=== PATIENT | male | born 1970 | race Caucasian/White ===

== ENCOUNTER 2018-07-12 11:03 | Inpatient (IN) | payer OTHER ==
[2018-07-12 11:42] VITALS: BMI 25.0
--- NOTE | 2018-07-12 13:34 | HP ---
CIWA Score - CIWA Score Nausea/Vomitin-Int. Nausea w/Dry Heave Muscle Tremors: 3 Anxiety: 4-Mod. Anxious/Guarded Agitation: 1-Slight > Activity Paroxysmal Sweats: No Perspiration Orientation: 0-Oriented Tacttile Disturbances: 0-None Auditory Disturbances: 0-None Visual Disturbances: 0-None Headache: 2-Mild CIWA-Ar Total Score: 14 Admission ROS BHS - HPI Allergies/Adverse Reactions: Allergies Allergy/AdvReac Type Severity Reaction Status Date / Time No Known Allergies Allergy Verified 07/12/18 12:32 History of Present Illness: patient here requesting detox from ETOH use , reports 12-pk beer/day , + tremors if not drinking , nausea and vomiting every morning , starts drinking as soon as he wakes up , denies seizures, + blackouts , + tremors m denies recent falls . previous detox x 3 , most recently 2 mo ago [facility] rere 0.302 utox + BZO pmhx : HIV + , htn , insomnia , copd , chronic left hip pain pshx : denies allergies : denies tobacco : occasional use denies driving after drinking Exam Limitations: Intoxication - Ebola screening Have you traveled outside of the country in the last 21 days: No Have you had contact with anyone from an Ebola affected area: No Have you been sick,other than usual withdrawal symptoms: No Do you have a fever: No - Review of Systems Constitutional: See HPI EENT: reports: Other (glasses for reading and distance) Respiratory: reports: Other (copd) Cardiac: reports: Irregular Heart Rate GI: reports: Diarrhea : reports: No Symptoms Reported Musculoskeletal: reports: Other (left 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 , saw ortho ,per pt replacement after age 50) Integumentary: reports: No Symptoms Reported Neuro: reports: Headache, Unsteady Gait Endocrine: reports: No Symptoms Reported Hematology: reports: No Symptoms Reported, See HPI, Anemia, Blood Clots, Easy Bleeding, Easy Bruising, Bleeding Diathesis, Lymph Node Abnormalities, Swollen Glands, Other Psychiatric: reports: Depressed, other (mdd , denies SI /HI) Patient History - Patient Medical History Hx Asthma: No Hx Chronic Obstructive Pulmonary Disease (COPD): Yes Hx Cardiac Disorders: No Hx Hypertension: Yes Hx Seizures: No Hx Diabetes: No Hx Gastrointestinal Disorders: No Hx Genitourinary Disorders: No Hx Sexually Transmitted Disorders: No Hx Renal Disease (ESRD): No Hx Depression: Yes Hx Suicide Attempt: No Hx Schizophrenia: No - Patient Surgical History Past Surgical History: No Hx Neurologic Surgery: No Hx Cataract Extraction: No Hx Cardiac Surgery: No Hx Lung Surgery: No Hx Breast Surgery: No Hx Breast Biopsy: No Hx Abdominal Surgery: No Hx Appendectomy: No Hx Cholecystectomy: No Hx Genitourinary Surgery: No Hx Section: No Hx Orthopedic Surgery: No Anesthesia Reaction: No - PPD History Previous Implant?: Yes Documented Results: Negative w/o proof - Smoking Cessation Smoking history: Current some day smoker Have you smoked in the past 12 months: Yes Aproximately how many cigarettes per day: 2 Hx Chewing Tobacco Use: No Initiated information on smoking cessation: No - Substances Abused Alcohol-beer Route: Oral Frequency: Daily Amount used: 2-6 pks. Age of first use: 17 Date of Last Use: 07/12/18 Admission Physical Exam [facility] - Vital Signs Vital Signs: Vital Signs - 24 hr 07/12/18 11:39 Temperature 97.1 F L Pulse Rate 89 Respiratory 20 Rate Blood Pressure 120/83 - Physical General Appearance: Yes: Moderate Distress, Intoxicated, Tremorous, Sweating, Anxious HEENTM: Yes: Within Normal Limits, EOMI, Hearing grossly Normal, Normal ENT Inspection, Normocephalic, Normal Voice, LEBRON, Pharynx Normal Respiratory: Yes: Within Normal Limits, Chest Non-Tender, Lungs Clear, Normal Breath Sounds, No Respiratory Distress, No Accessory Muscle Use Neck: Yes: Within Normal Limits, No masses,lesions,Nodules, Trachea in good position Cardiology: Yes: Within Normal Limits Abdominal: Yes: Within Normal Limits Genitourinary: Yes: Within Normal Limits Back: Yes: Within Normal Limits Musculoskeletal: Yes: Within Normal Limits Extremities: Yes: Tremors Neurological: Yes: Within Normal Limits, Motor Strength 5/5 Integumentary: Yes: Within Normal Limits, Normal Color, Dry, Warm Lymphatic: Yes: Within Normal Limits, Adenopathy, Tenderness, Other - Diagnostic (1) Alcohol withdrawal Current Visit: Yes Status: Acute Qualifiers: Complication of substance-induced condition: uncomplicated Qualified Code(s ): F10.230 - Alcohol dependence with withdrawal, uncomplicated Cleared for Admission [facility] - Detox or Rehab [facility] Level of Care: Medically Managed Detox Regimen/Protocol: Librium BHS Breath Alcohol Content Breath Alcohol Content: 0.302 Urine Drug Screen - Results Drug Screen Negative: No Urine Drug Screen Results: BZO-Benzodiazepines
[2018-07-12] MEDS ORDERED: hydrOXYzine PAMOATE 25 MG CAPSULE (FP) PO PRN (13:42)
[2018-07-12] MEDS ORDERED: LOPERAMIDE HCL 2 MG CAPSULE PO PRN (13:42)
[2018-07-12] MEDS ORDERED: chlordiazePOXIDE HCL 25 MG CAPSULE PO PRN (13:42)
[2018-07-12] MEDS ORDERED: MAG HYDROX/AL HYDROX/SIMETH 30 ML UNIT-DOSE CUP PO PRN (13:42)
[2018-07-12] MEDS ORDERED: P-EPHED 60MG/TRIPROLIDI 2.5MG TABLET PO PRN (13:42)
[2018-07-12] MEDS ORDERED: MENTHOL/PHENOL 1 EACH UD MM PRN (13:42)
[2018-07-12] MEDS ORDERED: IBUPROFEN 400 MG TABLET (FP) PO PRN (13:42)
[2018-07-12] MEDS ORDERED: MAGNESIUM CITRATE 300 ML BOTTLE PO PRN (13:42)
[2018-07-12] MEDS ORDERED: MAGNESIUM HYDROX 2400MG/30ML ORAL SUSPENSION 30 ML CUP PO PRN (13:42)
[2018-07-12] MEDS ORDERED: guaiFENesin/D-METHORPHAN HB 10 ML UNIT-DOSE CUPS PO PRN (13:42)
[2018-07-12] MEDS ORDERED: ACETAMINOPHEN 325 MG TABLET (FP) PO PRN (13:42)
[2018-07-12] MEDS ORDERED: DICLOFENAC SODIUM TP PRN (13:44)
[2018-07-12] MEDS: chlordiazePOXIDE HCL 25 MG CAPSULE PO SCH ×2 (17:12→22:31)
[2018-07-12 17:32] LABS: URINE APPEARANCE CLEAR; URINE BILIRUBIN NEGATIVE (<2.0 mg/dL); URINE COLOR LTYELLOW; URINE GLUCOSE (UA) NEGATIVE (NEGATIVE); URINE KETONE NEGATIVE (NEGATIVE); URINE LEUK ESTERASE NEGATIVE (NEGATIVE); URINE NITRITE NEGATIVE (NEGATIVE); URINE PROTEIN NEGATIVE (NEGATIVE); URINE UROBILINOGEN NEGATIVE mg/dL (0.2-1.0)
[2018-07-12] MEDS: THIAMINE HCL 100 MG TABLET (FP) PO SCH (22:31)
[2018-07-12] MEDS: MELATONIN 5 MG TABLETS PO PRN (22:32)
[2018-07-12] MEDS: METHYL SALICYLATE/MENTHOL OINT 30 GM TUBE TP SCH (22:45)
[2018-07-13] MEDS: chlordiazePOXIDE HCL 25 MG CAPSULE PO SCH ×4 (05:30→22:15)
--- NOTE | 2018-07-13 10:07 | PN ---
S CIWA - CIWA Score Nausea/Vomitin-No Nausea/No Vomiting Muscle Tremors: 4-Moderate,w/Arms Extend Anxiety: 4-Mod. Anxious/Guarded Agitation: 3 Paroxysmal Sweats: 1-Minimal Palms Moist Orientation: 0-Oriented Tacttile Disturbances: 0-None Auditory Disturbances: 0-None Visual Disturbances: 0-None Headache: 0-None Present CIWA-Ar Total Score: 12 BHS Progress Note (SOAP) Subjective: ANXIETY, SWEATS,TREMORS, INTERMITTENT SLEEP. Objective: 07/13/18 10:09 Vital Signs 07/13/18 07/13/18 07/13/18 02:30 03:00 03:30 Temperature Pulse Rate 67 63 63 Respiratory 18 18 Rate Blood Pressure 07/13/18 07/13/18 07/13/18 04:00 04:30 05:00 Temperature Pulse Rate 67 69 66 Respiratory 18 18 18 Rate Blood Pressure 07/13/18 07/13/18 07/13/18 05:30 05:57 06:00 Temperature 97.2 F L Pulse Rate 63 59 L 59 L Respiratory 18 18 18 Rate Blood Pressure 105/65 07/13/18 07/13/18 07/13/18 06:30 07:00 07:30 Temperature Pulse Rate 61 58 L 63 Respiratory 18 18 18 Rate Blood Pressure 07/13/18 07/13/18 07/13/18 08:00 08:30 09:09 Temperature 98.4 F Pulse Rate 67 57 L 71 Respiratory 18 18 Rate Blood Pressure 116/75 Laboratory Tests 07/12/18 15:24 Urine Color Ltyellow Urine Appearance Clear Urine pH 5.0 Ur Specific [place] 1.009 Urine Protein Negative Urine Glucose (UA) Negative Urine Ketones Negative Urine Blood Negative Urine Nitrite Negative Urine Bilirubin Negative Urine Urobilinogen Negative Ur Leukocyte Esterase Negative OTHER LABS PENDING Assessment: 07/13/18 10:09 WITHDRAWAL SX Plan: CONTINUE DETOX
[2018-07-13] MEDS: PRENATAL VITAMINS W/ FOLIC ACID TABLET (FP) PO SCH (10:31)
[2018-07-13] MEDS: PATIENT'S OWN MEDICATION (NON-FORMULARY) (Bictegrav/Emtricit/Tenofov Ala [Biktarvy 50-200- PO SCH (10:31)
[2018-07-13] MEDS: METHYL SALICYLATE/MENTHOL OINT 30 GM TUBE TP SCH ×2 (10:31→22:15)
[2018-07-13] MEDS: HYDROCHLOROTHIAZIDE 12.5 MG CAPSULE (FP) PO SCH (10:32)
[2018-07-13 10:54] LABS: HEMATOCRIT 40.2 % (35.4-49); HEMOGLOBIN 13.7 GM/dL (11.7-16.9); MCH 35.2 pg (25.7-33.7); MEAN CELL VOLUME 103.4 fl (80-96); PLATELET COUNT 304 K/MM3 (134-434); RBC 3.89 M/mm3 (4.00-5.60); RDW 13.4 % (11.9-15.9); WHITE BLOOD COUNT 6.5 K/mm3 (4.0-10.0)
[2018-07-13 11:28] LABS: ALBUMIN 4.2 g/dl (3.4-5.0); ALK PHOS 81 U/L (45-117); ANION GAP 16 MMOL/L (8-16); BILIRUBIN,TOTAL 0.5 mg/dL (0.2-1); BLOOD UREA NITROGEN 10 mg/dL (7-18); CALCIUM 9.2 mg/dL (8.5-10.1); CHLORIDE 92 mmol/L (98-107); CO2 22 mmol/L (21-32); GLUCOSE,RANDOM 88 mg/dL (74-106); POTASSIUM 3.9 mmol/L (3.5-5.1); SGOT/AST 43 U/L (15-37); SGPT/ALT 27 U/L (13-61); SODIUM 130 mmol/L (136-145); TOT PROT 7.6 g/dl (6.4-8.2)
--- NOTE | 2018-07-13 13:52 | CONSULT ---
[facility] Psychiatric Consult - Data Date of interview: 07/13/18 Admission source: [facility] Identifying data: First admission to [facility] for this 48 y/o male self-referred for detoxification treatment (alcohol dependence).Patient is without dependents of his own,homeless (lives [facility] [place] [facility] [place] [facility]), unemployed and supported on Public Assistance. Substance Abuse History: Discussed in this interview.Mr Kidd admits to a long history of alcohol dependence as described in this [facility] report.See details : Smoking history: Current some day smoker. Have you smoked in the past 12 months: Yes. Aproximately how many cigarettes per day: 2. Hx Chewing Tobacco Use: No. Initiated information on smoking cessation: No. - Substances Abused. Alcohol-beer. Route: Oral. Frequency: Daily. Amount used: 2-6 pks. Age of first use: 17. Date of Last Use: 07/12/18 Medical History: History of dislocated hip,HIV infection (on HAART medications), hypertension,COPD,bleeding diathesis,anemia and chronic hip pain (left). Psychiatric History: Diagnosed with MDD.No history of psychiatric hospitalizations.Patient is currently prescribed sertraline 50 mg/day + seroquel 25 mg/day.Mr Kidd sees a psychiatrist at the [facility] in [place].Patient denies history of suicide attempts. Physical/Sexual Abuse/Trauma History: Patient denies. Additional Comment: Urine Drug Screen Results: BZO-Benzodiazepines.Noted. Mental Status Exam - Mental Status Exam Alert and Oriented to: Time, Place, Person Cognitive Function: Good Patient Appearance: Well Groomed (tattoos on both arms + forearms) Mood: Nervous, Withdrawn, Hopeful Affect: Mood Congruent, Constricted Patient Behavior: Fatigued, Appropriate, Cooperative Speech Pattern: Clear Voice Loudness: Normal Thought Process: Intact, Goal Oriented Thought Disorder: Not Present Hallucinations: Denies Suicidal Ideation: Denies Homicidal Ideation: Denies Insight/Judgement: Poor Sleep: Poorly, Difficulty falling asleep Appetite: Poor, Weight loss Muscle strength/Tone: Normal Gait/Station: Other (not observed ; in bed through entire interview) Psychiatric Findings - Problem List ([place] 1, 2,3) (1) Alcohol dependence with uncomplicated withdrawal Current Visit: Yes Status: Acute (2) MDD (major depressive disorder) Current Visit: Yes Status: Chronic Comment: As per self-report. (3) Insomnia Current Visit: Yes Status: Acute - Initial Treatment Plan Initial Treatment Plan: Psychoeducation.Sleeep hygiene.Detoxification in progress.Medications reconciled : seroquel 25 mg po hs + zoloft 50 mg po daily.Side effects/benefits discussed with the patient.Mr Kidd agrees to this careplan.Observation.
--- NOTE | 2018-07-13 15:51 | EKG ---
Test Reason : Blood Pressure : / mmHG Vent. Rate : 069 BPM Atrial Rate : 069 BPM P-R Int : 148 ms QRS Dur : 110 ms QT Int : 430 ms P-R-T Axes : 078 082 070 degrees QTc Int : 460 ms NORMAL SINUS RHYTHM NORMAL ECG NO PREVIOUS ECGS AVAILABLE Confirmed by MD Thony, Jerome ([id number]) on 07/13/2018 3:51:00 PM Referred By: Confirmed By:Jerome Bhandari MD
[2018-07-13] MEDS: QUEtiapine FUMARATE 25 MG TABLET (FP) PO SCH (22:15)
[2018-07-13] MEDS: MELATONIN 5 MG TABLETS PO PRN (22:15)
[2018-07-13] MEDS: THIAMINE HCL 100 MG TABLET (FP) PO SCH (22:15)
[2018-07-14] MEDS: chlordiazePOXIDE HCL 25 MG CAPSULE PO SCH ×2 (05:47→10:22)
[2018-07-14] MEDS: SERTRALINE HCL 50 MG TABLET (FP) PO SCH (10:21)
[2018-07-14] MEDS: PATIENT'S OWN MEDICATION (NON-FORMULARY) (Bictegrav/Emtricit/Tenofov Ala [Biktarvy 50-200- PO SCH (10:21)
[2018-07-14] MEDS: METHYL SALICYLATE/MENTHOL OINT 30 GM TUBE TP SCH ×2 (10:21→22:17)
[2018-07-14] MEDS: PRENATAL VITAMINS W/ FOLIC ACID TABLET (FP) PO SCH (10:21)
[2018-07-14] MEDS: HYDROCHLOROTHIAZIDE 12.5 MG CAPSULE (FP) PO SCH (10:22)
--- NOTE | 2018-07-14 13:35 | PN ---
S CIWA - CIWA Score Nausea/Vomitin-Mild Nausea/No Vomiting Muscle Tremors: 2 Anxiety: 4-Mod. Anxious/Guarded Agitation: 4-Moderately Restless Paroxysmal Sweats: 2 Orientation: 0-Oriented Tacttile Disturbances: 0-None Auditory Disturbances: 0-None Visual Disturbances: 0-None Headache: 0-None Present CIWA-Ar Total Score: 13 BHS Progress Note (SOAP) Subjective: Anxious, restless, interrupted sleep Objective: 07/14/18 13:32 Last Vital Signs Temp Pulse Resp BP Pulse Ox 97 F L 83 20 118/78 07/14/18 13:29 07/14/18 13:29 07/14/18 13:29 07/14/18 13:29 Laboratory Tests 07/12/18 07/13/18 07/13/18 15:24 06:10 06:10 WBC 6.5 RBC 3.89 L Hgb 13.7 Hct 40.2 MCV 103.4 H MCH 35.2 H MCHC 34.0 RDW 13.4 Plt Count 304 MPV 9.0 Sodium 130 L Potassium 3.9 Chloride 92 L Carbon Dioxide 22 Anion Gap 16 BUN 10 Creatinine 1.0 Creat Clearance w eGFR > 60 Random Glucose 88 Calcium 9.2 Total Bilirubin 0.5 AST 43 H ALT 27 Alkaline Phosphatase 81 Total Protein 7.6 Albumin 4.2 Urine Color Ltyellow Urine Appearance Clear Urine pH 5.0 Ur Specific [place] 1.009 Urine Protein Negative Urine Glucose (UA) Negative Urine Ketones Negative Urine Blood Negative Urine Nitrite Negative Urine Bilirubin Negative Urine Urobilinogen Negative Ur Leukocyte Esterase Negative RPR Titer 07/13/18 06:10 WBC RBC Hgb Hct MCV MCH MCHC RDW Plt Count MPV Sodium Potassium Chloride Carbon Dioxide Anion Gap BUN Creatinine Creat Clearance w eGFR Random Glucose Calcium Total Bilirubin AST ALT Alkaline Phosphatase Total Protein Albumin Urine Color Urine Appearance Urine pH Ur Specific [place] Urine Protein Urine Glucose (UA) Urine Ketones Urine Blood Urine Nitrite Urine Bilirubin Urine Urobilinogen Ur Leukocyte Esterase RPR Titer Nonreactive Labs reviewed Assessment: 07/14/18 13:33 Withdrawal symptoms Plan: Continue detox
[2018-07-14] MEDS: chlordiazePOXIDE 5 MG CAPSULE PO SCH ×2 (17:23→22:17)
[2018-07-14] MEDS: MELATONIN 5 MG TABLETS PO PRN (22:17)
[2018-07-14] MEDS: QUEtiapine FUMARATE 25 MG TABLET (FP) PO SCH (22:17)
[2018-07-14] MEDS: THIAMINE HCL 100 MG TABLET (FP) PO SCH (22:17)
[2018-07-15] MEDS: chlordiazePOXIDE 5 MG CAPSULE PO SCH ×2 (05:24→10:11)
[2018-07-15] MEDS: PATIENT'S OWN MEDICATION (NON-FORMULARY) (Bictegrav/Emtricit/Tenofov Ala [Biktarvy 50-200- PO SCH (10:08)
[2018-07-15] MEDS: HYDROCHLOROTHIAZIDE 12.5 MG CAPSULE (FP) PO SCH (10:09)
[2018-07-15] MEDS: PRENATAL VITAMINS W/ FOLIC ACID TABLET (FP) PO SCH (10:09)
[2018-07-15] MEDS: SERTRALINE HCL 50 MG TABLET (FP) PO SCH (10:11)
[2018-07-15] MEDS: METHYL SALICYLATE/MENTHOL OINT 30 GM TUBE TP SCH (10:11)
--- NOTE | 2018-07-15 10:18 | PN ---
[facility] Progress Note Note: Pt requesting to be discharged today instead of tomorrow. Pt in no distress, no tremors, no sweats nor signs of withdrawals noted. Pt will be discharged
--- NOTE | 2018-07-15 10:23 | PN ---
S Progress Note (SOAP) Subjective: no complaints offered, states "I feel very fine" Requesting early discharge Objective: 07/15/18 10:19 A & Ox 3 Gait steady, no tremors, no sweats Vital Signs - 24 hr 07/14/18 07/14/18 07/14/18 13:29 17:29 22:00 Temperature 97 F L 97.7 F 97.2 F L Pulse Rate 83 71 68 Respiratory 20 18 18 Rate Blood Pressure 118/78 124/82 127/81 07/15/18 07/15/18 07/15/18 00:30 03:29 06:45 Temperature 96.5 F L Pulse Rate 52 L Respiratory 18 18 18 Rate Blood Pressure 98/58 L Assessment: 07/15/18 10:22 withdrawal sx Plan: for discharge
--- NOTE | 2018-07-15 10:27 | DS ---
[facility] Detox Discharge Summary Admission Date: 07/12/18 Discharge Date: 07/15/18 - History Additional Comments: Pt requesting to be discharged today instead of tomorrow. Pt in no distress, no tremors, no sweats nor signs of withdrawals noted. Pt will do out patient follow up at [facility] and follow up with his PCP Iggy Blank MD) in [place] Pt states he still has his HIV meds, decline prescription refills - Physical Exam Results Vital Signs: Vital Signs Temperature 96.5 F L 07/15/18 06:45 Pulse Rate 52 L 07/15/18 06:45 Respiratory Rate 18 07/15/18 06:45 Blood Pressure 98/58 L 07/15/18 06:45 O2 Sat by Pulse Oximetry (%) Pertinent Admission Physical Exam Findings: withdrawal sx - Treatment Hospital Course: Detox Protocol Followed, Detoxed Safely, Responded well, Discharged Condition Good Patient has Accepted a Rehab Referral to: Out patient @ [facility] - Medication Discharge Medications: Ambulatory Orders Bictegrav/Emtricit/Tenofov Ala [Biktarvy 50-200-25 mg Tablet] 1 each PO DAILY Diclofenac Sodium [Diclo Gel] 1 each TP DAILY PRN 07/12/18 Hydrochlorothiazide [Hctz -] 12.5 mg PO DAILY 07/12/18 Ibuprofen [Ibu] 800 mg PO TID PRN 07/12/18 Multivitamins [Tab-A-Vit -] 1 tab PO DAILY 07/12/18 Quetiapine Fumarate [Seroquel -] 25 mg PO HS 07/12/18 Sertraline HCl [Zoloft -] 50 mg PO DAILY 07/12/18 Thiamine HCl [Vitamin B1] 100 mg PO DAILY 07/12/18 - Diagnosis (1) Alcohol dependence with uncomplicated withdrawal Current Visit: Yes Status: Acute (2) Insomnia Current Visit: Yes Status: Acute (3) HIV (human immunodeficiency virus infection) Current Visit: Yes Status: Chronic (4) Hypertension Current Visit: Yes Status: Chronic (5) MDD (major depressive disorder) Current Visit: Yes Status: Chronic (6) Nicotine dependence Current Visit: Yes Status: Chronic - AMA Did Patient Leave Against Medical Advice: No
[2018-07-15 10:53] VITALS: BP 117/81; PULSE 96; TEMP 97.8
[2018-07-15] MEDS ORDERED: chlordiazePOXIDE HCL 10 MG CAPSULE PO SCH (17:00)
== END 2018-07-15 12:30 | disposition home or self-care (01) | DRG 775 ==
LOC: YASAS 11:03 → Y3N 13:46
PROC: HZ2ZZZZ Detoxification Services for Substance Abuse Treatment (ICD-10-PCS; principal; 2018-07-12)
DX: F10.230 Alcohol dependence with withdrawal, uncomplicated (principal); F17.210 Nicotine dependence, cigarettes, uncomplicated; F33.9 Major depressive disorder, recurrent, unspecified; F32.9 Major depressive disorder, single episode, unspecified; Z21 Asymptomatic human immunodeficiency virus [HIV] infection status; G47.00 Insomnia, unspecified; I10 Essential (primary) hypertension; J44.9 Chronic obstructive pulmonary disease, unspecified; M25.552 Pain in left hip; G89.29 Other chronic pain
CPT/HCPCS: 36415; 80053; 81003; 85027; 86593; 93005; 93010

== ENCOUNTER 2022-06-22 08:51 | Inpatient (IN) | payer OTHER ==
[2022-06-22 10:11] VITALS: BMI 25.9
[2022-06-22] MEDS ORDERED: LOPERAMIDE HCL 2 MG CAPSULE PO PRN (10:52)
[2022-06-22] MEDS ORDERED: ACETAMINOPHEN 325 MG TABLET (FP) PO PRN ×2 (10:52)
[2022-06-22] MEDS ORDERED: NALOXONE HCL (KLOXXADO) 8 MG SPRAY NS PRN (10:52)
[2022-06-22] MEDS ORDERED: LORazepam 1 MG TABLET PO PRN (10:52)
[2022-06-22] MEDS ORDERED: BISMUTH SUBSALICYLATE 524 MG/30 ML PO PRN (10:52)
[2022-06-22] MEDS ORDERED: MAGNESIUM HYDROX 2400MG/30ML ORAL SUSPENSION 30 ML CUP PO PRN (10:52)
[2022-06-22] MEDS ORDERED: IBUPROFEN 600 MG TABLET (FP) PO PRN (10:52)
[2022-06-22] MEDS ORDERED: BENZOCAINE/MENTHOL (CHLORASEPTIC ) LOZENGE MM PRN (10:52)
[2022-06-22] MEDS ORDERED: MAGNESIUM CITRATE 300 ML BOTTLE PO PRN (10:52)
[2022-06-22] MEDS ORDERED: ONDANSETRON *ODT* 4 MG TABLET SL PRN (10:52)
[2022-06-22] MEDS ORDERED: DICYCLOMINE HCL 10 MG CAPSULE PO PRN (10:52)
[2022-06-22] MEDS ORDERED: IBUPROFEN 400 MG TABLET (FP) PO PRN (10:52)
[2022-06-22] MEDS ORDERED: NICOTINE 10 MG CARTRIDGE (INHALER) IH PRN (10:52)
[2022-06-22] MEDS ORDERED: MAG HYDROX/AL HYDROX/SIMETH 30 ML UNIT-DOSE CUP PO PRN (10:52)
[2022-06-22] MEDS: METHOCARBAMOL 500 MG TABLET PO PRN (12:21)
[2022-06-22] MEDS: BICTEGRAV/EMTRICIT/TENOFOV (BIKTARVY) 50-200-25 MG TABLET PO SCH (12:21)
[2022-06-22] MEDS: PRENATAL VITAMINS W/ FOLIC ACID TABLET (FP) PO SCH (12:21)
[2022-06-22] MEDS: LORazepam 2 MG TABLET PO SCH ×3 (12:22→22:24)
[2022-06-22] MEDS: hydrOXYzine PAMOATE 25 MG CAPSULE (FP) PO SCH ×3 (14:08→22:24)
[2022-06-22 14:31] LABS: HEMATOCRIT 36.9 % (35.4-49); HEMOGLOBIN 12.6 GM/dL (11.7-16.9); MCH 35.4 pg (25.7-33.7); MCHC 34.1 g/dl (32.0-35.9); MEAN CELL VOLUME 103.9 fl (80-96); MEAN PLT VOLUME 7.3 fl (7.5-11.1); PLATELET COUNT 297 10^3/uL (134-434); RBC 3.55 M/mm3 (4.00-5.60); RDW 14.3 % (11.9-15.9); WHITE BLOOD COUNT 6.6 K/mm3 (4.0-10.0)
[2022-06-22 14:36] LABS: CALCIUM 9.2 mg/dL (8.5-10.1)
[2022-06-22 14:37] LABS: ALBUMIN 4.3 g/dl (3.4-5.0); BLOOD UREA NITROGEN 12.2 mg/dL (7-18)
[2022-06-22 14:40] LABS: CREATININE 1.1 mg/dL (0.55-1.3)
[2022-06-22 14:41] LABS: TOT PROT 8.1 g/dl (6.4-8.2)
[2022-06-22 14:42] LABS: BILIRUBIN,TOTAL 0.3 mg/dL (0.2-1)
[2022-06-22] MEDS: THIAMINE HCL 100 MG TABLET (FP) PO SCH (22:24)
[2022-06-22] MEDS: MELATONIN 5 MG TABLETS PO SCH (22:24)
[2022-06-23] MEDS: LORazepam 2 MG TABLET PO SCH ×4 (05:34→22:19)
[2022-06-23] MEDS: hydrOXYzine PAMOATE 25 MG CAPSULE (FP) PO SCH ×5 (05:34→22:19)
[2022-06-23] MEDS: METHOCARBAMOL 500 MG TABLET PO PRN (10:15)
[2022-06-23] MEDS: PRENATAL VITAMINS W/ FOLIC ACID TABLET (FP) PO SCH (10:15)
[2022-06-23] MEDS: BICTEGRAV/EMTRICIT/TENOFOV (BIKTARVY) 50-200-25 MG TABLET PO SCH (10:17)
[2022-06-23] MEDS: FUROSEMIDE 40 MG TABLET (FP) PO SCH (14:27)
[2022-06-23] MEDS: THIAMINE HCL 100 MG TABLET (FP) PO SCH (22:19)
[2022-06-23] MEDS: QUEtiapine FUMARATE 50 MG TABLET PO SCH (22:20)
[2022-06-24] MEDS: MELATONIN 5 MG TABLETS PO SCH ×2 (00:32→22:32)
[2022-06-24] MEDS: hydrOXYzine PAMOATE 25 MG CAPSULE (FP) PO SCH ×5 (05:47→22:32)
[2022-06-24] MEDS: LORazepam 1 MG TABLET PO SCH ×4 (05:47→22:32)
[2022-06-24] MEDS: BICTEGRAV/EMTRICIT/TENOFOV (BIKTARVY) 50-200-25 MG TABLET PO SCH (07:11)
[2022-06-24] MEDS: METHOCARBAMOL 500 MG TABLET PO PRN ×2 (10:48→22:35)
[2022-06-24] MEDS: PRENATAL VITAMINS W/ FOLIC ACID TABLET (FP) PO SCH (10:49)
[2022-06-24] MEDS: FUROSEMIDE 40 MG TABLET (FP) PO SCH (10:49)
[2022-06-24] MEDS: THIAMINE HCL 100 MG TABLET (FP) PO SCH (22:32)
[2022-06-24] MEDS: QUEtiapine FUMARATE 50 MG TABLET PO SCH (22:36)
[2022-06-25] MEDS ORDERED: LORazepam 0.5 MG TABLET PO PRN
[2022-06-25] MEDS: LORazepam 0.5 MG TABLET PO SCH ×4 (05:45→22:07)
[2022-06-25] MEDS: hydrOXYzine PAMOATE 25 MG CAPSULE (FP) PO SCH ×5 (05:45→22:06)
[2022-06-25] MEDS: BICTEGRAV/EMTRICIT/TENOFOV (BIKTARVY) 50-200-25 MG TABLET PO SCH (07:10)
[2022-06-25] MEDS: FUROSEMIDE 40 MG TABLET (FP) PO SCH (11:04)
[2022-06-25] MEDS: METHOCARBAMOL 500 MG TABLET PO PRN ×2 (11:05→17:45)
[2022-06-25] MEDS: PRENATAL VITAMINS W/ FOLIC ACID TABLET (FP) PO SCH (11:05)
[2022-06-25] MEDS: amLODIPine BESYLATE 5 MG TABLET (FP) PO SCH (11:40)
[2022-06-25] MEDS: THIAMINE HCL 100 MG TABLET (FP) PO SCH (22:06)
[2022-06-25] MEDS: MELATONIN 5 MG TABLETS PO SCH (22:06)
[2022-06-25] MEDS: QUEtiapine FUMARATE 50 MG TABLET PO SCH (22:07)
[2022-06-26 00:20] VITALS: RESP 18
[2022-06-26] MEDS ORDERED: LORazepam 0.5 MG TABLET PO ONE (05:00)
[2022-06-26] MEDS: hydrOXYzine PAMOATE 25 MG CAPSULE (FP) PO SCH ×2 (05:59→09:37)
[2022-06-26] MEDS: PRENATAL VITAMINS W/ FOLIC ACID TABLET (FP) PO SCH (09:37)
[2022-06-26] MEDS: FUROSEMIDE 40 MG TABLET (FP) PO SCH (09:37)
[2022-06-26] MEDS: amLODIPine BESYLATE 5 MG TABLET (FP) PO SCH (09:37)
[2022-06-26 09:44] VITALS: BP 123/86; PULSE 90; TEMP 97.5
== END 2022-06-26 09:29 | disposition home or self-care (01) | DRG 775 ==
LOC: YASAS 08:51 → Y6N 11:35
PROVIDERS: ADMIT Allergy & Immunology; ATTEND Surgery
PROC: HZ2ZZZZ Detoxification Services for Substance Abuse Treatment (ICD-10-PCS; principal; 2022-06-22)
DX: F10.230 Alcohol dependence with withdrawal, uncomplicated (principal); F10.282 Alcohol dependence with alcohol-induced sleep disorder; F10.280 Alcohol dependence with alcohol-induced anxiety disorder; F17.213 Nicotine dependence, cigarettes, with withdrawal; F41.9 Anxiety disorder, unspecified; F33.9 Major depressive disorder, recurrent, unspecified; I10 Essential (primary) hypertension; K70.30 Alcoholic cirrhosis of liver without ascites; Z21 Asymptomatic human immunodeficiency virus [HIV] infection status; G47.00 Insomnia, unspecified; Z56.0 Unemployment, unspecified
CPT/HCPCS: 36415; 80053; 85027; 86780; C9803-CS; U0003; U0005

== ENCOUNTER 2023-11-10 16:39 | Inpatient (IN) | payer OTHER ==
[2023-11-10 17:14] VITALS: BMI 29.1
[2023-11-10] MEDS ORDERED: TRIMETHOBENZAMIDE HCL 200MG/2ML INJ IM ONE (17:50)
[2023-11-10] MEDS ORDERED: BENZOCAINE/MENTHOL (CHLORASEPTIC ) LOZENGE MM PRN (18:08)
[2023-11-10] MEDS ORDERED: NALOXONE HCL 0.4 MG/ML VIAL IM PRN (18:08)
[2023-11-10] MEDS ORDERED: NALOXONE HCL (KLOXXADO) 8 MG SPRAY NS PRN (18:08)
[2023-11-10] MEDS ORDERED: MAG HYDROX/AL HYDROX/SIMETH 30 ML UNIT-DOSE CUP PO PRN (18:08)
[2023-11-10] MEDS ORDERED: BENZONATATE 200 MG CAPSULE PO PRN (18:08)
[2023-11-10] MEDS ORDERED: hydrOXYzine PAMOATE 25 MG CAPSULE (FP) PO PRN (18:08)
[2023-11-10] MEDS ORDERED: LOPERAMIDE HCL 2 MG CAPSULE PO PRN (18:08)
[2023-11-10] MEDS ORDERED: BISMUTH SUBSALICYLATE 524 MG/30 ML PO PRN (18:08)
[2023-11-10] MEDS ORDERED: guaiFENesin 600 MG TABLET.ER (FP) PO PRN (18:08)
[2023-11-10] MEDS ORDERED: ONDANSETRON *ODT* 4 MG TABLET SL PRN (18:08)
[2023-11-10] MEDS ORDERED: IBUPROFEN 400 MG TABLET (FP) PO PRN (18:08)
[2023-11-10] MEDS ORDERED: POLYETHYLENE GLYCOL (HEALTHYLAX) 3350 17 GM PACKET PO PRN (18:08)
[2023-11-10] MEDS ORDERED: ACETAMINOPHEN 325 MG TABLET (FP) PO PRN (18:08)
[2023-11-10] MEDS ORDERED: IBUPROFEN 600 MG TABLET (FP) PO PRN (18:08)
[2023-11-10] MEDS ORDERED: MAGNESIUM HYDROX 2400MG/30ML ORAL SUSPENSION 30 ML CUP PO PRN (18:08)
[2023-11-10] MEDS ORDERED: LORazepam 1 MG TABLET ONE (18:32)
[2023-11-10] MEDS: LORazepam 1 MG TABLET PO PRN (18:36)
[2023-11-10] MEDS: MELATONIN 5 MG TABLETS PO SCH (22:21)
[2023-11-10] MEDS: THIAMINE HCL 100 MG TABLET (FP) PO SCH (22:21)
[2023-11-10] MEDS: METHOCARBAMOL 500 MG TABLET PO PRN (22:22)
[2023-11-10] MEDS: LORazepam 2 MG TABLET PO SCH (22:22)
[2023-11-11] MEDS: LORazepam 2 MG TABLET PO SCH ×4 (05:49→22:23)
[2023-11-11 10:18] LABS: POTASSIUM 4.3 mmol/L (3.5-5.1)
[2023-11-11 10:24] LABS: BLOOD UREA NITROGEN 18.1 mg/dL (7-18); CALCIUM 8.6 mg/dL (8.5-10.1)
[2023-11-11 10:27] LABS: CREATININE 1.8 mg/dL (0.55-1.3)
[2023-11-11 10:29] LABS: BILIRUBIN,TOTAL 0.5 mg/dL (0.2-1); TOT PROT 6.4 g/dl (6.4-8.2)
[2023-11-11 10:30] LABS: HEMATOCRIT 34.4 % (35.4-49); HEMOGLOBIN 11.8 GM/dL (11.7-16.9); MCH 35.2 pg (25.7-33.7); MCHC 34.3 g/dl (32.0-35.9); MEAN CELL VOLUME 102.6 fl (80-96); MEAN PLT VOLUME 8.3 fl (7.5-11.1); PLATELET COUNT 199 10^3/uL (134-434); RBC 3.35 M/mm3 (4.00-5.60); WHITE BLOOD COUNT 6.6 K/mm3 (4.0-10.0)
[2023-11-11] MEDS: PRENATAL VITAMINS W/ FOLIC ACID TABLET (FP) PO SCH (10:36)
[2023-11-11] MEDS: FLUoxetine HCL 20 MG CAPSULE PO SCH (12:28)
[2023-11-11] MEDS: LORazepam 1 MG TABLET PO PRN (13:24)
[2023-11-11] MEDS: amLODIPine BESYLATE 5 MG TABLET (FP) PO SCH (17:48)
[2023-11-11] MEDS: BICTEGRAV/EMTRICIT/TENOFOV (BIKTARVY) 50-200-25 MG TABLET PO SCH (17:48)
[2023-11-11] MEDS: ASPIRIN COATED 81 MG TABLET.EC PO SCH (17:50)
[2023-11-11] MEDS: ATORVASTATIN CA 40 MG TABLET (FP) PO SCH (22:22)
[2023-11-11] MEDS: THIAMINE HCL 100 MG TABLET (FP) PO SCH (22:22)
[2023-11-11] MEDS: METHOCARBAMOL 500 MG TABLET PO PRN (22:22)
[2023-11-11] MEDS: MELATONIN 5 MG TABLETS PO SCH (22:22)
[2023-11-11] MEDS: QUEtiapine FUMARATE 50 MG TABLET PO SCH (22:22)
[2023-11-12] MEDS: LORazepam 1 MG TABLET PO SCH ×4 (05:43→22:21)
[2023-11-12] MEDS: BICTEGRAV/EMTRICIT/TENOFOV (BIKTARVY) 50-200-25 MG TABLET PO SCH (09:56)
[2023-11-12] MEDS: FLUoxetine HCL 20 MG CAPSULE PO SCH (09:56)
[2023-11-12] MEDS: amLODIPine BESYLATE 5 MG TABLET (FP) PO SCH (09:56)
[2023-11-12] MEDS: ASPIRIN COATED 81 MG TABLET.EC PO SCH (09:57)
[2023-11-12] MEDS: PRENATAL VITAMINS W/ FOLIC ACID TABLET (FP) PO SCH (09:57)
[2023-11-12] MEDS: ENALAPRIL MALEATE 10 MG TABLET PO SCH (09:57)
[2023-11-12] MEDS ORDERED: BENAZEPRIL HCL 10 MG PO SCH (10:00)
[2023-11-12 12:34] LABS: CREATININE 1.4 mg/dL (0.55-1.3)
[2023-11-12] MEDS: GABAPENTIN 400 MG CAPSULE PO SCH ×2 (14:32→22:21)
[2023-11-12] MEDS: MELATONIN 5 MG TABLETS PO SCH (22:20)
[2023-11-12] MEDS: THIAMINE HCL 100 MG TABLET (FP) PO SCH (22:21)
[2023-11-12] MEDS: ATORVASTATIN CA 40 MG TABLET (FP) PO SCH (22:21)
[2023-11-12] MEDS: QUEtiapine FUMARATE 50 MG TABLET PO SCH (22:21)
[2023-11-12] MEDS: METHOCARBAMOL 500 MG TABLET PO PRN (22:21)
[2023-11-13] MEDS ORDERED: LORazepam 0.5 MG TABLET PO PRN
[2023-11-13] MEDS: LORazepam 0.5 MG TABLET PO SCH ×4 (05:48→22:32)
[2023-11-13] MEDS: GABAPENTIN 400 MG CAPSULE PO SCH ×3 (05:48→22:31)
[2023-11-13] MEDS: PRENATAL VITAMINS W/ FOLIC ACID TABLET (FP) PO SCH (10:30)
[2023-11-13] MEDS: ASPIRIN COATED 81 MG TABLET.EC PO SCH (10:30)
[2023-11-13] MEDS: ENALAPRIL MALEATE 10 MG TABLET PO SCH (10:30)
[2023-11-13] MEDS: amLODIPine BESYLATE 5 MG TABLET (FP) PO SCH (10:30)
[2023-11-13] MEDS: BICTEGRAV/EMTRICIT/TENOFOV (BIKTARVY) 50-200-25 MG TABLET PO SCH (10:30)
[2023-11-13] MEDS: FLUoxetine HCL 20 MG CAPSULE PO SCH (10:30)
[2023-11-13] MEDS: CHOLECALCIFEROL (VIT D3) 400 UNIT (10 MCG) TABLET PO SCH (10:54)
[2023-11-13] MEDS: QUEtiapine FUMARATE 50 MG TABLET PO SCH (22:31)
[2023-11-13] MEDS: MELATONIN 5 MG TABLETS PO SCH (22:31)
[2023-11-13] MEDS: ATORVASTATIN CA 40 MG TABLET (FP) PO SCH (22:31)
[2023-11-13] MEDS: METHOCARBAMOL 500 MG TABLET PO PRN (22:32)
[2023-11-13] MEDS: THIAMINE HCL 100 MG TABLET (FP) PO SCH (22:32)
[2023-11-14] MEDS ORDERED: LORazepam 0.5 MG TABLET PO ONE (05:00)
[2023-11-14] MEDS: GABAPENTIN 400 MG CAPSULE PO SCH (06:04)
[2023-11-14] MEDS ORDERED: LACTULOSE 20 GM/30 ML UDC (FOR ORAL USE ONLY) PO PRN (08:40)
[2023-11-14 09:09] VITALS: BP 101/60; PULSE 75; RESP 19; TEMP 98.4
[2023-11-14] MEDS: FLUoxetine HCL 20 MG CAPSULE PO SCH (09:46)
[2023-11-14] MEDS: PRENATAL VITAMINS W/ FOLIC ACID TABLET (FP) PO SCH (09:46)
[2023-11-14] MEDS: amLODIPine BESYLATE 5 MG TABLET (FP) PO SCH (09:46)
[2023-11-14] MEDS: BICTEGRAV/EMTRICIT/TENOFOV (BIKTARVY) 50-200-25 MG TABLET PO SCH (09:46)
[2023-11-14] MEDS: ASPIRIN COATED 81 MG TABLET.EC PO SCH (09:46)
[2023-11-14] MEDS: CHOLECALCIFEROL (VIT D3) 400 UNIT (10 MCG) TABLET PO SCH (09:46)
[2023-11-14] MEDS: ENALAPRIL MALEATE 10 MG TABLET PO SCH (09:47)
== END 2023-11-14 10:45 | disposition home or self-care (01) | DRG 775 ==
LOC: YASAS 16:39 → Y3N 18:29
PROVIDERS: ADMIT Allergy & Immunology; ATTEND Allergy & Immunology
PROC: HZ2ZZZZ Detoxification Services for Substance Abuse Treatment (ICD-10-PCS; principal; 2023-11-10)
DX: F10.230 Alcohol dependence with withdrawal, uncomplicated (principal); F10.280 Alcohol dependence with alcohol-induced anxiety disorder; F32.9 Major depressive disorder, single episode, unspecified; F10.282 Alcohol dependence with alcohol-induced sleep disorder; B20 Human immunodeficiency virus [HIV] disease; E72.20 Disorder of urea cycle metabolism, unspecified; E78.5 Hyperlipidemia, unspecified; I10 Essential (primary) hypertension; K70.30 Alcoholic cirrhosis of liver without ascites; Z20.822 Contact with and (suspected) exposure to COVID-19; Z87.891 Personal history of nicotine dependence; Z99.89 Dependence on other enabling machines and devices
CPT/HCPCS: 0241U-QW; 36415; 80053; 80307; 82140; 82565; 85027; 86780; 87635; 87811; 93005; 93010